=== PATIENT | female | born 1960 | race Caucasian/White ===

== ENCOUNTER 2018-07-19 06:18 | Inpatient (IN) | payer OTHER, SELFPAY ==
[2018-07-10 12:05] VITALS: BMI 16.9
[2018-07-19] VITALS (24 sets, daily range): BP systolic 97–178; BP diastolic 73–106; PULSE 54–80; RESP 8–19; TEMP 36.3–37.9; O2SAT 91–100; BMI 16.6
[2018-07-19] MEDS: LACTATED RINGERS 1,000 ML 42 ML IV ×3 (07:24→10:59)
--- NOTE | 2018-07-19 07:24 | SUR.PREOP ---
pt observed to have non-productive cough. Per pt this is chronic for her. Lungs are clear on auscultation.
--- NOTE | 2018-07-19 07:39 | PM.PREOP ---
Pre-operative Note Interval Note History & Physical reviewed/Exam performed by Physician: Yes Changes to H&P: No
[2018-07-19] MEDS: ALBUTEROL/IPRATROPIUM 3 ML AMPUL INH (07:56)
[2018-07-19] MEDS: CEFAZOLIN 1 GM/50 ML FROZ.PIGGY IV ×2 (08:00→19:52)
--- NOTE | 2018-07-19 09:05 | SUR.OPER ---
Prone on spine table, head in foam head support, padded chest and pelvic supports, gel pad at knees, lower legs supported by pillows; nipples, genitalia and toes free of pressure, arms secured on foam padded arm boards at <90 degrees abduction. Tape over blanket at thigh secured to table. patient became mobile after prone positioning prior to incision head rechecked and repositiined..arms and legs rechecked coccyx reddened after approximately 1 hr of laying on [place]
[2018-07-19] MEDS: BUPIVACAINE LIPOSOME 266 MG/20 ML VIAL INJ (09:29)
[2018-07-19] MEDS: BUPIVACAINE 0.25% W/ EPI 30 ML VIAL INJ (09:29)
[2018-07-19] MEDS: ACETAMINOPHEN IV 1,000 MG/100 ML VIAL 400 MG IV (12:00)
[2018-07-19] MEDS: CEFAZOLIN VIAL 3 GM in SODIUM CHLORIDE 0.9% 100 ML 200 ML IV (12:11)
--- NOTE | 2018-07-19 12:22 | SUR.OPER ---
WOUND DRESSING APPLIED TO SACRUM TO PREVENT PRESSURE DRESSING
--- NOTE | 2018-07-19 12:39 | PM.OP.1 ---
Operative Date/Time/Diagnoses Date of procedure: 07/19/18 Time of procedure: 08:15 Pre-op diagnosis: 1. L3-4 spondylolisthesis 2. L3-4 post laminectomy syndrome 3. Hx of L4-5 fusion with pseudoarthrosis 4. L3-4, L4-5, L5-S1 spondylosis with radiculopathy Post-op diagnosis: same Procedure & Clinicians Procedure: 1. L3-4, L5-S1 posterolateral and posterior interbody fusion 2. L3-4, L5-S1 interbody cage placement 3. L4-5 posterior non-segmental instrumentation removal 4. L4-5 decompressive laminectomy and exploration of fusion 5. L3-4, L4-5, L5-S1 segmental instrumentation with pedicle screw placement in L3, L4, L5, S1 6. L4-5 posterolateral fusion 7. [place] of bone marrow from iliac crest 8. Utilization of microsurgical technique and operating microscope Same procedure as scheduled: Yes Indications: Patient has been having chronic back pain and worsening lumbar radiculopathy. Patient had prior lumbar fusion at L4-5 with progressively worsening pain difficulty walking and weakness in her legs. Patient failed multiple conservative management with worsening pain weakness and numbness in her lower extremity. Patient has been having difficulty performing activity of daily living. After discussing risks benefits of treatment options, patient elected proceed with surgery. Surgeon: Noemi Douglas Manager Search Engine: Bonny Roth Click Yes if Unassisted: No Anesthesia Type: General Operative Notes Closure Type: primary Prosthetic devices, grafts, tissues, transplants, or devices: Globus revolve screws, Rise cages Applied: catheter Estimated Blood Loss (mL): 100 Blood products transfused: none Procedure in detail: Patient was seen in the preoperative area. Risks and benefits of the surgery was discussed with the patient. Informed consent was obtained from the patient and placed in the chart. Surgical site was marked. Patient was taken to the operative room. General anesthesia was administered. Prophylactic antibiotic was given to the patient less than 30 min before the incision was made. Patient was placed into a prone position on the [place] table. Patient's back was then prepped and draped in the sterile fashion. Time-out was performed at this time. Using patient's previous scar incision was made over the L3-4, L4-5, L5-S1 interval on the left side. Fascia was incised in line with skin incision. Patient's previously placed hardware over the L4-5 level was identified by dissecting down to the level the hardware using a Bovie and a Rojas. The locking caps which was removed using globus screwdriver. The locking josh was then removed from the [place] of the pedicle screws using a Naina. The pedicle screws were then removed using the screwdriver. The screws were found to have mild purchase at L4 and okay purchase at L5. The Globus and MARS retractors was then placed into the wound and docked onto the L3 and L5 lamina using C-arm guidance. Using microsurgical technique and operating microscope a laminectomy facetectomy was performed by removing the L3, L5 lamina and the L3-4, L5-S1 facet. The disc space at L3-4, L5-S1 level was identified next. And a total diskectomy was performed at [L3-4, L5-S1 level. The endplates were decorticated using a rasp and shaver. The total diskectomy and decortication was performed at L3-4, L5-S1 level in order to to accomplish a L3-4, L5-S1 interbody fusion. The local bone from the laminectomy and facetectomy was saved for local bone grafting. After the total diskectomy and decortication was completed, Bio4 bone graft material was combined with local bone that was harvested earlier. At this time, a separate skin is incision was made over the iliac crest. A Jamshidi needle was inserted into the iliac crest through a separate skin incision. 5 cc of bone marrow aspiration was obtained through the separate skin incision using a Jamshidi needle from the iliac crest. The bone marrow aspiration was combined with local bone and the Bio4 bone grafting material. The bone grafting material was placed into the L3-4, L5-S1 interbody space along with a expandable cage. The cage was expanded to its maximum height using the torque limiting screwdriver. At this time a mirror image incision was made on the right side. The fascia was incised in line with the skin incision. Patient's previously placed hardware on the left side was then removed in the same fashion as it was on the right side. The hardware was also found to have less than ideal purchase. The fusion mass on the right side was exposed by performing a lright-sided hemilaminectomy at [L4-5 level. The hemilaminectomy was performed using the Kerrison rongeur to undercut the lamina as well removing additional epidural scar tissue for purpose of decompressing the epidural space. The fusion mass was explored and was found have visible motion indicating pseudoarthrosis. Globus MARS retractor was inserted and docked onto the L3-4, L4-5, L5-S1 posterolateral gutter. Using the power drill, posterior-lateral decortication was performed at L3-4, L4-5, L5-S1 level until bleeding cortical bone was identified. The remaining bone grafting material was placed into the L3-4, L4-5, L5-S1 posterior lateral gutter he order to accomplish posterolateral fusion at the L3-4, L4-5, L5-S1 level. Using the double C-arm technique, pedicle screws were placed into the L3, L4, L5, S1 pedicles bilaterally. This was done by placing the Jamshidi needle into the pedicles, then placing the guidewires over the Jamshidi needle, and finally placing the cannulated screws over the guidewires bilaterally. After the pedicle screws were placed, 2 titanium rods was locked into the heads of the pedicle screws using locking caps and torque limiting screwdriver. A threaded reducers were used to reduce the spondylolisthesis at L3-4. At adequate reduction was accomplished using the hardware combination. After all the hardware was placed, and confirmed with AP and lateral C-arm imaging, the wound was then irrigated with sterile normal saline and packed with Ray-Tien gauze for 3 min to accomplish hemostasis. After the gauze was removed the deep fascia was closed with #1 Vicryl suture. The subcutaneous layer was closed with 2-0 Vicryl. The skin was closed with skin monica. Patient tolerated the procedure well. There were no complications. Complications: none Condition: stable Disposition: PACU Plan for aftercare: Admit to inpatient hospital
--- NOTE | 2018-07-19 12:44 | DI.RAD.S_ITS ---
PROCEDURE: XR LUMBAR SPINE 2-3V INDICATIONS: L3-4, L5-S1 TLIF FINDINGS: 2 limited intraoperative fluoroscopically stored images of the lower lumbar spine were obtained for intraoperative hardware localization purposes. These images are not meant for diagnostic purposes. Intraoperative findings related to a L3-S1 posterior discectomy and fusion are present. IMPRESSION: Intraoperative images obtained during the patient's lumbosacral fusion procedure. Dictated by: Jim Crowley M.D. on 07/19/2018 at 12:15 Approved by: Jim Crowley M.D. on 07/19/2018 at 12:17
[2018-07-19] MEDS: HYDROMORPHONE 2 MG INJ 0.5 MG IV ×4 (12:50→13:45)
[2018-07-19] MEDS: LORazepam 2 MG/ML SYRINGE 0.5 MG IV (12:54)
[2018-07-19] MEDS: fentaNYL 100 MCG/2 ML INJ 50 MCG IV ×2 (13:22→13:40)
--- NOTE | 2018-07-19 13:45 | SUR.PHASEI ---
continue to medicate pt for c/o pain, back dressing remains dry and intact, judd patent and draining cloudy yellow urine, report called to GAEL Vora IV patent.
[2018-07-19] MEDS: OXYCODONE IR 5 MG TABLET 10 MG PO ×3 (16:01→22:21)
--- NOTE | 2018-07-19 16:20 | PT.IPTN ---
Current Diagnoses Spondylolisthesis, lumbar region (07/19/18) Other spondylosis with radiculopathy, lumbar region (07/19/18) Spinal stenosis, lumbar region without neurogenic claudication (07/19/18) Arthrodesis status (07/19/18) Surgery Performed Operation Date: 07/19/18 07:45 Actual Procedures p L3-4,L5-S1 TLIF, L4-5 HWR & Explor. of fusion, Poss PSF L3-4,L4-5,L5-S1 Instru.(Not Applicable) - Noemi Douglas MD Physical Therapy Treatment Note M3 PT-IP Subjective Start: 07/19/18 16:53 Freq: NEEDED Status: Active Protocol: Document 07/19/18 16:20 RCC (Rec: 07/19/18 16:54 RCC [id number]) Subjective Physical Therapy Visit Type Type Patient Refusal Notes pt grimacing in pain, refused PT this afternoon. Post-op packet given for information at this time. Will attempt PT tomorrow.
[2018-07-19] MEDS: SODIUM CHLORIDE 0.9% 1,000 ML 100 ML IV (16:29)
[2018-07-19] MEDS: NICOTINE 14 PATCH 14 MG TOP (16:30)
[2018-07-19] MEDS: hydrOXYzine pamoate 25 MG CAPSULE PO (16:36)
[2018-07-19] MEDS: ONDANSETRON 4 MG/2 ML INJ IV (16:44)
--- NOTE | 2018-07-19 17:40 | PC.NURSE ---
1500 Patient received from PACU, patient and family oriented to room and call light. VSS. Dressing to back CDI. Uribe in place, secure and patent. Patient wiggling toes, good pulses. Assisted to turn to side, moaning with some pain noted with movement. Oncoming evening shift RN given report to assume care.
[2018-07-19] MEDS: HYDROMORPHONE 1 MG INJ 0.5 MG IV ×2 (18:53→20:52)
[2018-07-19] MEDS: ACETAMINOPHEN 325 MG TABLET 650 MG PO (19:52)
[2018-07-19] MEDS: hydrOXYzine pamoate 25 MG CAPSULE 50 MG PO (20:47)
[2018-07-19] MEDS: SENNOSIDES 8.6 MG TABLET 17.2 MG PO (22:22)
[2018-07-19] MEDS: DOCUSATE 100 MG CAPSULE PO (22:23)
[2018-07-19] MEDS: CITALOPRAM 20 MG TABLET PO (22:23)
[2018-07-19] MEDS: TRAZODONE 50 MG TABLET 100 MG PO (22:24)
[2018-07-20] VITALS (7 sets, daily range): BP systolic 116–154; BP diastolic 57–97; PULSE 75–89; RESP 16–21; TEMP 37.3–38.9; O2SAT 96–99
[2018-07-20] MEDS: OXYCODONE IR 5 MG TABLET 10 MG PO ×6 (01:31→18:23)
[2018-07-20] MEDS: SODIUM CHLORIDE 0.9% 1,000 ML 100 ML IV (02:58)
[2018-07-20] MEDS: CEFAZOLIN 1 GM/50 ML FROZ.PIGGY IV (03:57)
[2018-07-20 06:56] LABS: Hematocrit 30.1 % (36-46); Hemoglobin 10.4 g/dL (12.0-16.0)
[2018-07-20] MEDS: ATENOLOL 50 MG TABLET PO (07:42)
[2018-07-20] MEDS: hydrOXYzine pamoate 25 MG CAPSULE 50 MG PO ×2 (07:42→11:36)
[2018-07-20] MEDS: TIOTROPIUM BROMIDE 18 MCG INHALER INH (07:43)
[2018-07-20] MEDS: MULTIVITAMIN 1 TABLET 1 TAB PO (07:43)
[2018-07-20] MEDS: DOCUSATE 100 MG CAPSULE PO ×2 (07:43→21:19)
[2018-07-20 08:56] LABS: Bacteria Urine None Seen; RBC Urine None Seen (0-5/HPF); WBC Urine None Seen (0-5/HPF)
[2018-07-20 09:01] LABS: Appearance Urine UA CLEAR; Bilirubin Urine UA NEGATIVE (NEGATIVE); Color Urine UA YELLOW; Glucose Urine UA NEGATIVE (Negative); Ketones Urine UA NEGATIVE (NEGATIVE); Leukocyte Esterase Urine UA NEGATIVE (NEGATIVE); Nitrite Urine UA NEGATIVE (Negative); Occult Blood Urine UA NEGATIVE (Negative); Protein Urine UA NEGATIVE (Negative); Specific Gravity Urine UA <=1.005 (1.000-1.035); Urobilinogen Urine UA 0.2 E.U./dL (0.2)
[2018-07-20 09:10] LABS: Culture Indicated Urine Cult Not Indicated; Urine Comments Microscopic Normal
--- NOTE | 2018-07-20 09:31 | P.PN_ITS ---
Subjective Date Patient Seen: 07/20/18 Time Patient Seen: 09:27 Interval history: Hospital day 2, postop day 1 following L3-4 through L5-S1 TLIF, cage, posterior screw fixation by Dr. Douglas. Patient has had noticeable pain postoperatively to her back. Did have low-grade fever during the night. Temp was 102.1? oral this morning. She does have Uribe catheter in place. She denies any fever chills. No respiratory symptoms. Has been taking oxycodone 10 mg and has had 2 doses of IV Dilaudid for breakthrough pain. Patient has not had any physical therapy yet because of back pain. She states that she was told that she is not to get out of bed. I told her that was not the case and that we need to get her up and moving to help with her back and prevent pneumonia. Also need to get her Uribe catheter out as soon as possible to reduce chance of infection. Exam Vital Signs (past 8 hours): - 07/20/18 04:00 07/20/18 08:00 07/20/18 09:13 Temperature 101.8 F H 102.1 F H Pulse Rate 87 89 Respiratory Rate 21 16 Blood Pressure 154/97 H 140/85 Pulse Oximetry 96 96 96 Fraction of Inspired Oxygen 21 Oxygen Delivery Method Room Air Oxygen Flow Rate 0 Narrative Exam Narrative: Alert, oriented no acute distress right lying in bed. Back. Dressing to the lumbar area is dry without drainage or inflammation. Legs. No calf pain or swelling. Pulses symmetrical. Good sensation to touch to the lower legs. Good strength on foot dorsiflexion plantar flexion. Objective Labs Result Diagrams: 07/20/18 08:30 Labs: Laboratory Results - last 24 hr 07/20/18 07/20/18 06:36 08:30 Hgb 10.4 L Hct 30.1 L Urine Color Yellow Urine Appearance Clear Urine pH 6.0 Ur Specific Aiken <=1.005 Urine Protein Negative Urine Glucose (UA) Negative Urine Ketones Negative Urine Occult Blood Negative Urine Nitrate Negative Urine Bilirubin Negative Urine Urobilinogen 0.2 Ur Leukocyte Esterase Negative Urine RBC None seen Urine WBC None seen Urine Bacteria None seen Ur Culture Indicated? Cult not indicated Micro UA Comment Microscopic normal Assessment & Plan Post-op Postoperative Procedures Operation Date: 07/19/18 07:45 Actual Procedures Side Surgeon p L3-4,L5-S1 TLIF, L4-5 HWR & Explor. of fusion, Poss PSF L3-4,L4-5,L5-S1 Instru. Not Applicable Noemi Douglas MD Plan: Patient will begin working with physical therapy today. Encouraged her to get up out of bed in in the chair or walking in room. Anticipate DC Uribe catheter when she is more active. Will check CBC and urinalysis today discrete pain because of fever. I think the temperature is reaction to her surgery. Patient anticipates 3 night stay in the hospital.
[2018-07-20 10:06] LABS: Add Manual Diff / Slide Review NO; Basophils Absolute Auto 0 /uL (0-100); Basophils Percent Auto 0.2 % (0-2); Eosinophils Absolute Auto 0 /uL (0-450); Eosinophils Percent Auto 0.3 % (2-4); Hematocrit 41.8 % (36-46); Hemoglobin 14.1 g/dL (12.0-16.0); Lymphocytes Absolute Auto 1900 /uL (1100-4500); Mean Corpuscular HGB Conc 33.7 % (30-36); Mean Corpuscular Hemoglobin 31.9 PG (26-34); Mean Corpuscular Volume 94.7 fL (80-100); Monocytes Absolute Auto 1400 /uL (0-900); Monocytes Percent Auto 11.4 % (3-14); Neutrophils Absolute Auto 8700 /uL (1500-7000); Neutrophils Percent Auto 72.1 % (50-75); Platelet Count 231 X10^3/uL (150-400); Red Blood Cell Count 4.41 X10^6/uL (4.0-5.2); Red Cell Distribution Width 12.6 % (11.6-14.8)
--- NOTE | 2018-07-20 10:45 | PC.NURSE ---
Notified of elevated temp by MANAGER ESTATE this morning, noted at 102.1 orally. Graciela CHAVEZ notified. Order for UA with culture as indicated received, specimen collected and sent to lab. Blood work ordered and completed. No other orders received, continue to monitor patient.
--- NOTE | 2018-07-20 12:15 | PT.IIE ---
Current Diagnoses Spondylolisthesis, lumbar region (07/19/18) Other spondylosis with radiculopathy, lumbar region (07/19/18) Spinal stenosis, lumbar region without neurogenic claudication (07/19/18) Arthrodesis status (07/19/18) Surgery Performed Operation Date: 07/19/18 07:45 Actual Procedures p L3-4,L5-S1 TLIF, L4-5 HWR & Explor. of fusion, Poss PSF L3-4,L4-5,L5-S1 Instru.(Not Applicable) - Noemi Douglas MD Surgical History (Last Updated 02/16/18 @ 12:20 by Lulú Allan, RN) History of lumbar spinal fusion (Acute) Medical History (Last Updated 07/10/18 @ 12:27 by Lulú Allan, RN) Alcoholism (Acute) Anemia (Acute) Anxiety (Acute) Asthma (Acute) COPD (chronic obstructive pulmonary disease) (Acute) CSF leak (Acute) Chest pain due to psychological stress (Acute) Chronic pancreatitis due to acute alcohol intoxication (Acute) Current every day smoker (Acute) Diabetes (Acute) ETOH abuse (Acute) Easy bruisability (Acute) HTN (hypertension) (Acute) Migraines (Acute) Pancreatitis (Acute) Pneumonia (Acute) Sciatica (Acute) Seizures (Acute) Smokers' cough (Acute) Thrombocytopenia (Acute) Thrush (Acute 06/08/18) Ulcer (Acute) Physical Therapy Inpatient Evaluation/Re-Eval M1 PT/OT-IP Prior Functional Status Start: 07/19/18 16:53 Freq: NEEDED Status: Active Protocol: Document 07/20/18 09:45 (Rec: 07/20/18 12:15 [id number]) Medical Review Prior Functional Status Medical History Reviewed Yes Diet/Fluid Consistency Regular Communication No deficits noted. Able to make needs known Mobility and Gait Pt was an independent ambulator at home mostly but doesnt go out often. She often used a FWW as needed per report. He reports pt is quite impulsive and wobbly in gait prior to surgery. Activities of Daily Living and IADL's Pt was independent for ADLs and son often SBA for showering. Pt mostly home bound and son does IADLs for pt. Social History Household Members spouse Living Arrangements House Number of Floors (Floors) Two Floors Number of Stairs To Enter/Railing? 1 threshold Home Environment High Toilet Tub/Shower Home Equipment Front Wheel Walker Grab Bars Near Toilet Employment Status Retired Additional Social History Comment Pt lives with her spouse in a 2 level home in [place]. They both stays on main floor. Her spouse reports pt was mostly homebound and used a FWW sometimes if needed. He stated he always SBA for pt to get over the bathtub for safety and pt does have a little stool for step up. He is self employed and his work hours varies. He claimed to be able to assist as needed at home if pt d/c home. He also stated pt is quite impulsive and wobbly in gait prior to surgery. M2 PT-IP Current Condition Start: 07/19/18 16:53 Freq: NEEDED Status: Active Protocol: Document 07/20/18 09:45 HH (Rec: 07/20/18 12:15 [email or web address]) Physical Therapy Current Condition Current Condition Evaluation Date 07/20/18 Treatment Diagnosis L3-L4, L5-S1 TLIF, impaired gait, balance and activity tolerance. Onset Date 07/19/18 Precautions Lumbar Precautions Log Roll No Twisting Limit Bending Lifting Restriction of 10 lbs Gait Belt above Incisional Area Weight Bearing Status Weight Bearing Status Weight Bear as Tolerated M3 PT-IP Subjective Start: 07/19/18 16:53 Freq: NEEDED Status: Active Protocol: Document 07/20/18 09:45 HH (Rec: 07/20/18 12:15 [email or web address]) Subjective Physical Therapy Visit Type Type Initial Evaluation Visit Start Time 09:45 Visit Stop Time 10:30 Total Visit Minutes 45 Notes Per RN, pt had a fever 102 degree last night. Number of NUCLEAR AUXILIARY OPERATOR Visits 0 Physical Therapy Visit Comments Patient Comments I feel better today. Patient Goals To return home with her . Therapy Pain Assessment Pain When Pain Assessed During Mobility Pain Present Pain Present Pain Reported Location Back Intensity 6 Scale Used Numeric (1 - 10) Description Acute Pain Behaviors Calling Out Facial Grimacing Pain Management Techniques Modification of Treatment Re-positioning Timing of Activity with Medications M4 PT-IP Mobility and Gait Start: 07/19/18 16:53 Freq: NEEDED Status: Active Protocol: Document 07/20/18 09:45 HH (Rec: 07/20/18 12:15 [email or web address]) PT-Bed Mobility Assessment Rolling Type of Rolling Log Rolling Roll to Right Level of Assist Moderate Assistance 1 Person Assistance Supine to Sit Supine to Sit Moderate Assistance 1 Person Assistance Sit to Supine Sit to Supine Moderate Assistance 1 Person Assistance Scooting Scooting to Edge of Bed Minimal Assistance PT-Transfer Assessment Sit to and From Stand Sit to and from Stand Minimal Assistance Use of Upper Extremities Equipment Transfer Assistive Device Front Wheeled Walker Orthotic/Prosthetic Devices or Brace: No Transfers Transfer Destination Bed Chair Transfer Technique Stand Step Pivot Transfer Ability Level of Assist Minimal Assistance Comments Mobility Comments Pt required mod A x 1p for log roll and bed mobilty. min A x 1 p for sit to stand and transfer. Pt is very impulsive and often forgot precautions. Pt tried to get up multiple times without supervision and claimed I just want to get up and move. Recommended and pt to use call light for assistance. Pt was transferred back to bed with RN mod A x 1. Call light within reach and bed alarm set . Gait Assessment Gait Gait Assistance Required: Minimum Assistance Distance (Feet) 20 Able to Maintain Weight Bearing Status Yes During Gait Assistive Devices Assistive Device Gait Belt Front Wheeled Walker Orthotic/Prosthetic Devices or Brace: No Gait Deviations General Gait Pattern Decreased Stride Length Decreased Feet Clearance Step-to Gait Factors Limiting Gait Function Factors Limiting Gait Function Decreased Activity Tolerance Decreased Sensation Decreased Strength Limited Range of Motion Pain Poor Balance Poor Safety Awareness Comments Gait Comments Pt amb from EOB to window and back to chair with min A FWW. Pt was wobbly during amb and often misplaced her walker to the side and required cues and assistance to redirect her. Pt got up from chair once without supervision and her requested for help. RN and therapist hand held assist pt back to bed. Pt stated Im unsteady and my LLE is very weak. Stair Climbing Assessment Comments Stair Climbing Comments did not attempt due to unsteady gait PT-Balance Assessment Sitting Balance and Reactions Static Sitting Balance Ability Normal Dynamic Sitting Balance Ability Good Standing Balance and Reactions Static Standing Balance Ability Fair Dynamic Standing Balance Ability Fair Device Used FWW M5 PT-IP Objective Assessments Start: 07/19/18 16:53 Freq: NEEDED Status: Active Protocol: Document 07/20/18 09:45 HH (Rec: 07/20/18 12:15 [email or web address]) Orientation Orientation/Cognition Level of Alertness Alert Orientation Name Age Birthday Month Date Year Day of Week Place Situation Language Function Ability No Deficits Noted Safety Awareness Decreased Safety Awareness Memory Description No Deficits Noted Comments Pt is very impulsive and non patient Gross Range of Motion Upper Extremity ROM Assessment Within Functional Limits Lower Extremity ROM Assessment Within Functional Limits Strength Upper Extremity Strength Assessment Within Functional Limits Lower Extremity Strength Assessment Bilaterally Impaired Comments Strength Comments L LE 3+/5 R LE 4+/5 pt reports she has weakness prior to surgery. Coordination Assessment Gross Coordination Gross Coordination WNL Sensation Assessment Sensation Gross Sensation WNL Light Touch Intact Proprioception (Position) Intact Muscle Tone Muscle Tone WNL Yes M6 PT-IP Treatment Start: 07/19/18 16:53 Freq: NEEDED Status: Active Protocol: Document 07/20/18 09:45 HH (Rec: 07/20/18 12:15 HH [email or web address]) Physical Therapy Treatment Exercises Exercises Gluteal Sets Quad Sets Education Education Provided Precautions Weight Bearing Status Post-Op Packet Safety M7 PT-IP Assessment and Plan Start: 07/19/18 16:53 Freq: NEEDED Status: Active Protocol: Document 07/20/18 09:45 HH (Rec: 07/20/18 12:15 HH [email or web address]) PT Summary Assessment and Plan Potential Rehabilitation Potential Good Status of Condition at Evaluation Evolving Summary Impairments Pain ROM Strength Balance Cognition Bed Mobility Transfers Gait Activity Tolerance Assessment Summary Pt is a 58yo female POD #2 L3- L4, L5-S1 TLIF due to severe chronic back pain. Pt appears very impulsive and non patient who often disregard precautions to mobilize herself. Pt required mod A for bed mobility and min A for gait training. Pt needs mod cues for safety awareness and FWW management. Pt also has weak L LE and decreased balance as she was wobbly during amb. Pt is not safe to d/c home at this point due to her behavioral issues and pain which creates fall risks. Recommend d/c to short term SNF to improve mobility. Unless, pt was able to clear her rehab goals prior to d/c home. Goals Bed Mobility Goal Standby Assistance Transfer Goal Standby Assistance Front Wheeled Walker Gait Goal Standby Assistance Front Wheel Walker Gait Distance 200 Other Goals clear 1 step with AD Days to Meet Goals 5 Frequency of Treatment Frequency Of Treatment Twice a Day Treatment Plan Physical Therapy Treatment Plan Bed Mobility Training Transfer Training Gait Training Therapeutic Exercise Balance Retraining Post Op Education Discharge Planning Hot or Cold Pack Other Recommendations and Next Treatment review precautions Focus cont monitor pt safety bed mob, transfer and gait training as nakul clear 1 step if possible Recommendations To Nursing Amount of Assist Needed 1 Person Assist Discharge Recommendations PT Discharge Recommendations Home with Assistance SNF Rehab Other Discharge Recommendations Pt is not safe to d/c home at this point due to her behavioral issues and pain which creates fall risks. Recommend d/c to short term SNF to improve mobility. Unless, pt was able to clear her rehab goals prior to d/c home. Equipment Needed for Home Before tub bench Discharge
--- NOTE | 2018-07-20 14:37 | PC.NURSE ---
Patient forgetful with instructions and impulsive with movements. Patient requires a lot of verbal cueing for safety. Restrictions re-enforced. Uribe remains intact and draining. Dressing remains dry with shadow drainage noted but unchanged. Pain management with oxycodone as documented. Bed/chair alarm for safety;
--- NOTE | 2018-07-20 15:36 | PT.IPTN ---
Current Diagnoses Spondylolisthesis, lumbar region (07/19/18) Other spondylosis with radiculopathy, lumbar region (07/19/18) Spinal stenosis, lumbar region without neurogenic claudication (07/19/18) Arthrodesis status (07/19/18) Surgery Performed Operation Date: 07/19/18 07:45 Actual Procedures p L3-4,L5-S1 TLIF, L4-5 HWR & Explor. of fusion, Poss PSF L3-4,L4-5,L5-S1 Instru.(Not Applicable) - Noemi Douglas MD Physical Therapy Treatment Note M2 PT-IP Current Condition Start: 07/19/18 16:53 Freq: NEEDED Status: Active Protocol: Document 07/20/18 09:45 (Rec: 07/20/18 12:15 [email or web address]) Physical Therapy Current Condition Current Condition Evaluation Date 07/20/18 Treatment Diagnosis L3-L4, L5-S1 TLIF, impaired gait, balance and activity tolerance. Onset Date 07/19/18 Precautions Lumbar Precautions Log Roll No Twisting Limit Bending Lifting Restriction of 10 lbs Gait Belt above Incisional Area Weight Bearing Status Weight Bearing Status Weight Bear as Tolerated M3 PT-IP Subjective Start: 07/19/18 16:53 Freq: NEEDED Status: Active Protocol: Document 07/20/18 15:19 SA (Rec: 07/20/18 15:36 SA [email or web address]) Subjective Physical Therapy Visit Type Type Treatment Note Visit Start Time 14:18 Visit Stop Time 14:41 Total Visit Minutes 23 Number of SECY Visits 1 Physical Therapy Visit Comments Patient Comments Pt initially refused to participate in therapy but finally agreed after encouragement from daughter. Patient Goals To return home with her . Therapy Pain Assessment Pain When Pain Assessed During Mobility Pain Present Pain Present Pain Reported Location Back Intensity 6 Scale Used Numeric (1 - 10) Description Acute Pain Behaviors Calling Out Facial Grimacing Pain Management Techniques Modification of Treatment Re-positioning Timing of Activity with Medications M4 PT-IP Mobility and Gait Start: 07/19/18 16:53 Freq: NEEDED Status: Active Protocol: Document 07/20/18 15:19 SA (Rec: 07/20/18 15:36 SA [email or web address]) PT-Bed Mobility Assessment Rolling Type of Rolling Log Rolling Roll to Right Level of Assist Minimal Assistance 1 Person Assistance Supine to Sit Supine to Sit Minimal Assistance 1 Person Assistance Sit to Supine Sit to Supine Minimal Assistance 1 Person Assistance Scooting Scooting to Edge of Bed Standby Assistance Scooting Up and Down in Bed Standby Assistance PT-Transfer Assessment Sit to and From Stand Sit to and from Stand Contact Guard Assistance Minimal Assistance Equipment Transfer Assistive Device Gait Belt Front Wheeled Walker Orthotic/Prosthetic Devices or Brace: No Transfers Transfer Destination Bed Toilet Transfer Technique Stand Step Pivot Transfer Ability Level of Assist Contact Guard Assistance Minimal Assistance Comments Mobility Comments Focused education for log roll technique with patient and daughter. Pt is very impulsive and not compliant with spinal precautions, visual/verbal review of precautions conducted with patient and family. Gait Assessment Gait Gait Assistance Required: Contact Guard Assist Minimum Assistance 1 Person Assist Distance (Feet) 25 Able to Maintain Weight Bearing Status Yes During Gait Assistive Devices Assistive Device Gait Belt Front Wheeled Walker Orthotic/Prosthetic Devices or Brace: No Gait Deviations General Gait Pattern Decreased Stride Length Decreased Feet Clearance Step-to Gait Factors Limiting Gait Function Factors Limiting Gait Function Decreased Activity Tolerance Decreased Sensation Decreased Strength Limited Range of Motion Pain Poor Balance Poor Safety Awareness Comments Gait Comments Gait training in room bathroom and back with FWW and CGA-Min A. Pt attempts to leave FWW behind even though she is unsteady on feet. Pt demonstrates poor balance and safety awareness. Stair Climbing Assessment Comments Stair Climbing Comments did not attempt due to unsteady gait PT-Balance Assessment Sitting Balance and Reactions Static Sitting Balance Ability Normal Dynamic Sitting Balance Ability Good M5 PT-IP Objective Assessments Start: 07/19/18 16:53 Freq: NEEDED Status: Active Protocol: Document 07/20/18 09:45 (Rec: 07/20/18 12:15 [email or web address]) Orientation Orientation/Cognition Level of Alertness Alert Orientation Name Age Birthday Month Date Year Day of Week Place Situation Language Function Ability No Deficits Noted Safety Awareness Decreased Safety Awareness Memory Description No Deficits Noted Comments Pt is very impulsive and non patient Gross Range of Motion Upper Extremity ROM Assessment Within Functional Limits Lower Extremity ROM Assessment Within Functional Limits Strength Upper Extremity Strength Assessment Within Functional Limits Lower Extremity Strength Assessment Bilaterally Impaired Comments Strength Comments L LE 3+/5 R LE 4+/5 pt reports she has weakness prior to surgery. Coordination Assessment Gross Coordination Gross Coordination WNL Sensation Assessment Sensation Gross Sensation WNL Light Touch Intact Proprioception (Position) Intact Muscle Tone Muscle Tone WNL Yes M6 PT-IP Treatment Start: 07/19/18 16:53 Freq: NEEDED Status: Active Protocol: Document 07/20/18 15:19 SA (Rec: 07/20/18 15:36 SA [email or web address]) Physical Therapy Treatment Exercises Exercises Gluteal Sets Quad Sets Education Education Provided Precautions Weight Bearing Status Post-Op Packet Safety M7 PT-IP Assessment and Plan Start: 07/19/18 16:53 Freq: NEEDED Status: Active Protocol: Document 07/20/18 15:19 SA (Rec: 07/20/18 15:36 [email or web address]) PT Summary Assessment and Plan Summary Assessment Summary Pt demonstrates poor judgment and safety awareness, unsteady on feet with weak LEs , recommend SNF prior to d/c home. Family is supportive but pt tends to direct her own care. Goals Days to Meet Goals 5 Frequency of Treatment Frequency Of Treatment Twice a Day Treatment Plan Physical Therapy Treatment Plan Bed Mobility Training Transfer Training Gait Training Therapeutic Exercise Balance Retraining Post Op Education Discharge Planning Hot or Cold Pack Other Recommendations and Next Treatment review precautions Focus cont monitor pt safety bed mob, transfer and gait training as nakul clear 1 step if possible Recommendations To Nursing Amount of Assist Needed 1 Person Assist Discharge Recommendations PT Discharge Recommendations Home with Assistance SNF Rehab Other Discharge Recommendations Continued recommendation for SNF d/c.
--- NOTE | 2018-07-20 16:04 | CM.DANOTE ---
Discharge Planning/Care Management DCP: assessment: case received, EMR reviewed. Discussed in Team Rounds. Pt is a 58 year old female who admitted for a planned spinal surgery: Dr Doulgas: surgeon. Payer: [facility] INPT admission status: confirmed by UR GALE Atkins. PT and OT are ordered. No OT notes are yet available. OF NOTE: pt's spouse Abran did the pre-op assessment phone discussion. See that pt has hx of anxiety, alcohol abuse with current use 2 drinks a day. is a daily smoker. is primarily homebound with noting unsteadiness and impulsiveness with mobility as a baseline. Pt and husbands stated d/c goal: home with Abran's assist. See that PT Ho (Thomas) is recommending a snf stay at this time. P: discuss in Team Rounds and look for OT notes tomorrow. Meet with pt and Abran for further discussion of d/c issues and options. It would appear questionable that pt would do well in a snf environment but will follow up tomorrow as noted. carranza auth would be needed. CM Discharge Assessment Start: 07/20/18 16:04 Freq: Status: Active Protocol: Document 07/20/18 16:04 ITV (Rec: 07/20/18 16:04 ITV [email or web address]) Discharge Planning Assessment Advance Directives? No History Provided By Medical Record Prior Living Arrangements House Household Members spouse Review Status In Process Next Review Type Continued Stay Review Pre-Anesthesia Assessment Start: 07/10/18 12:05 Freq: Status: Complete Protocol: Document 07/10/18 12:05 CAB (Rec: 07/10/18 12:27 CAB [id number]) Pre-Anesthesia Assessment Patient Information Reviewed Via Chart Review Comment Spoke briefly on phone w/ to review medications Diagnostic Results BMP/CMP CBC EKG PT/INR Other Comment A1c. Outside labs 05/05/18, ECG x 3 scanned to record Primary Care Provider Flako Serrano Medical Clearance Received Yes Seen Specialist in Last 12 Months Yes Specialist Seen Orthopedist Comment PCP clearance 06/08/18 scanned to record Primary Language Bhutanese Sequins Slinger Required No Height 160.02 cm Weight 43.545 kg Body Mass Index (BMI) 16.9 Hearing Ability Normal Visual Impairment No Limitations Visual Assist None Dentition Type Full- Upper & Lower Other Aids No Hx Anesthesia Reactions No Hx Family Anesthesia Reaction No Hx Malignant Hyperthermia No Hx Blood Transfusions No Anesthesia Review Requested Anesthesia review completed scanned to record Medical Pathology Teacher No alcohol intake current alcohol intake frequency 0-2 drinks per day Alcohol Intake Frequency Other: ETOH abuse, states now 2 drinks daily Smoking Status Current every day smoker Smoking packs per day 1 Smoking pack-years 40 Substance Use Type marijuana Pain Present Pain Reported Musculoskeletal Symptoms Abnormal Gait Back Pain Difficulty Walking Joint Pain Numbness History of Falling (Recent or History of Yes ) Patient is completely paralyzed or No completely immobile Mental Status Oriented to own ability Is patient on oxygen? No Does patient have GALLARDO/SOB Yes: r/t anxiety, asthma Hx Sleep Apnea No Comment PFT 06/02/18 scanned to record Currently Taking a Beta Elvis Yes: Atenolol Can You Climb a Flight of Stairs Without No SOB Hx Chest Pain Yes: Chest tightness Hx SOB Yes: r/t anxiety, asthma Hx Syncope or Dizziness No Anti-Coagulant Therapy No Has a Physician Specialist Yes: Dr. Hassan-last visit Cardiac Testing Yes: ECHO 04/11/18, Nuc stress 04/12/19 Hx Pacemaker/ICD No Pacemaker Rep Required? No Cardiac Clearance Received Not Applicable Diet Type At Home Regular dysphagia No Bladder Pattern Frequency Incontinent, Stress Nocturia Urgency Urinary Catheter Present No Hx Urinary Self Catheterization No Diabetes Yes: History of DM, went away per PCP HgbA1C 5.7 Date 05/05/18 Patient No Lactating No Hx Drug Resistant Organism No Presence of External or Internal Medical No Devices Have you traveled outside the [facility] in the last 30 days? Marital Status Lives With spouse Prior Living Arrangements House Number of Floors (Floors) Two Floors Number of Stairs To Enter/Railing? None Support System Spouse Does the Patient Have Assistance After Yes Surgery Patient Discharge Plan Description Return Home Do You Have Any Spiritual Beliefs That No May Affect Your HC Choices? Do You Have Any Cultural Practices That No May Affect Your HC Choices? Health Care Proxy/Next of Kin Abran () Health Care Proxy Emergency Contact Name Abran () Emergency Contact Advance Directives? No: Pt declines further information Power of Social Sciences Professor No PAC Instructions Durable medical equipment Medications to take/avoid Post-op transportation Sturdy shoes/comfortable clothes Discharge Planning/Care Management CM Discharge Assessment Start: 07/20/18 16:04 Freq: Status: Active Protocol: Document 07/20/18 16:04 ITV (Rec: 07/20/18 16:04 ITV [email or web address]) Discharge Planning Assessment Advance Directives? No History Provided By Medical Record Prior Living Arrangements House Household Members spouse Review Status In Process Next Review Type Continued Stay Review Pre-Anesthesia Assessment Start: 07/10/18 12:05 Freq: Status: Complete Protocol: Document 07/10/18 12:05 CAB (Rec: 07/10/18 12:27 CAB [id number]) Pre-Anesthesia Assessment Patient Information Reviewed Via Chart Review Comment Spoke briefly on phone w/ to review medications Diagnostic Results BMP/CMP CBC EKG PT/INR Other Comment A1c. Outside labs 05/05/18, ECG x 3 scanned to record Primary Care Provider Flako Serrano Medical Clearance Received Yes Seen Specialist in Last 12 Months Yes Specialist Seen Orthopedist Comment PCP clearance 06/08/18 scanned to record Primary Language Bhutanese Sequins Slinger Required No Height 160.02 cm Weight 43.545 kg Body Mass Index (BMI) 16.9 Hearing Ability Normal Visual Impairment No Limitations Visual Assist None Dentition Type Full- Upper & Lower Other Aids No Hx Anesthesia Reactions No Hx Family Anesthesia Reaction No Hx Malignant Hyperthermia No Hx Blood Transfusions No Anesthesia Review Requested Anesthesia review completed scanned to record Medical Pathology Teacher No alcohol intake current alcohol intake frequency 0-2 drinks per day Alcohol Intake Frequency Other: ETOH abuse, states now 2 drinks daily Smoking Status Current every day smoker Smoking packs per day 1 Smoking pack-years 40 Substance Use Type marijuana Pain Present Pain Reported Musculoskeletal Symptoms Abnormal Gait Back Pain Difficulty Walking Joint Pain Numbness History of Falling (Recent or History of Yes ) Patient is completely paralyzed or No completely immobile Mental Status Oriented to own ability Is patient on oxygen? No Does patient have GALLARDO/SOB Yes: r/t anxiety, asthma Hx Sleep Apnea No Comment PFT 06/02/18 scanned to record Currently Taking a Beta Elvis Yes: Atenolol Can You Climb a Flight of Stairs Without No SOB Hx Chest Pain Yes: Chest tightness Hx SOB Yes: r/t anxiety, asthma Hx Syncope or Dizziness No Anti-Coagulant Therapy No Has a Physician Specialist Yes: Dr. Hassan-last visit Cardiac Testing Yes: ECHO 12/18/18, Nuc stress 04/12/19 Hx Pacemaker/ICD No Pacemaker Rep Required? No Cardiac Clearance Received Not Applicable Diet Type At Home Regular dysphagia No Bladder Pattern Frequency Incontinent, Stress Nocturia Urgency Urinary Catheter Present No Hx Urinary Self Catheterization No Diabetes Yes: History of DM, went away per PCP HgbA1C 5.7 Date 05/05/18 Patient No Lactating No Hx Drug Resistant Organism No Presence of External or Internal Medical No Devices Have you traveled outside the [facility] in the last 30 days? Marital Status Lives With spouse Prior Living Arrangements House Number of Floors (Floors) Two Floors Number of Stairs To Enter/Railing? None Support System Spouse Does the Patient Have Assistance After Yes Surgery Patient Discharge Plan Description Return Home Do You Have Any Spiritual Beliefs That No May Affect Your HC Choices? Do You Have Any Cultural Practices That No May Affect Your HC Choices? Health Care Proxy/Next of Kin Abran () Health Care Proxy Emergency Contact Name Abran () Emergency Contact Advance Directives? No: Pt declines further information Power of Social Sciences Professor No PAC Instructions Durable medical equipment Medications to take/avoid Post-op transportation Sturdy shoes/comfortable clothes
[2018-07-20] MEDS: ACETAMINOPHEN 325 MG TABLET 650 MG PO (17:12)
--- NOTE | 2018-07-20 18:01 | OT.IP.TRT ---
Current Diagnoses Spondylolisthesis, lumbar region (07/19/18) Other spondylosis with radiculopathy, lumbar region (07/19/18) Spinal stenosis, lumbar region without neurogenic claudication (07/19/18) Arthrodesis status (07/19/18) Surgery Performed Operation Date: 07/19/18 07:45 Actual Procedures p L3-4,L5-S1 TLIF, L4-5 HWR & Explor. of fusion, Poss PSF L3-4,L4-5,L5-S1 Instru.(Not Applicable) - Noemi Douglas MD Occupational Therapy Treatment Note M3 OT- IP Subjective and Pain Start: 07/20/18 17:57 Freq: Status: Active Protocol: Document 07/20/18 17:59 CGR (Rec: 07/20/18 18:00 CGR [email or web address]) OT- Subjective Occupational Therapy Visit Type Type Patient Unavailable Notes Attempted to see pt for OT services this PM. Pt declined all activity and this time stating that she just could not perform anything else today. Will follow up tomorrow (07/21) for OT eval.
[2018-07-20] MEDS: TRAZODONE 50 MG TABLET 100 MG PO (21:18)
[2018-07-20] MEDS: SENNOSIDES 8.6 MG TABLET 17.2 MG PO (21:19)
[2018-07-20] MEDS: NICOTINE 14 PATCH 14 MG TOP (21:19)
[2018-07-20] MEDS: CITALOPRAM 20 MG TABLET PO (21:19)
[2018-07-21] VITALS (8 sets, daily range): BP systolic 104–126; BP diastolic 69–86; PULSE 64–84; RESP 16–19; TEMP 36.3–38.4; O2SAT 94–99
[2018-07-21] MEDS: ACETAMINOPHEN 325 MG TABLET 650 MG PO ×3 (00:06→19:50)
[2018-07-21] MEDS: OXYCODONE IR 5 MG TABLET 10 MG PO ×2 (00:06→07:44)
--- NOTE | 2018-07-21 03:32 | PC.NURSE ---
Pt. restless & confused getting OOB frequently. Pulled out her IV access, refused to restart another IV access. Will cont. POC & monitor
--- NOTE | 2018-07-21 05:46 | PC.NURSE ---
Pt. finally sleeping since 399. Rony still inplaced, coordinator notified states just let her sleep for now. Will monitor & report to day RN.
--- NOTE | 2018-07-21 08:04 | CM.DPC ---
DCP: continued. Met now with pt and her Abran, rooming in. Introduced self and role. Discussed their plan for post hospital care and mentioned the PT recommendation for snf. Both confirmed the plan for home. Abran notes, we don't like nursing homes. I will be taking care of her at home. We've done this before after spinal surgery. Pt is up in chair, and agrees with this. She at this time is smiling and appears relaxed. She admits to a restless night. Spoke with ortho SCOTT Rai. She notes pt has chronic pain history and is currently on less pain medication than she gets at home. Spoke with GAEL Farmer. He reports pt has been doing well thus far this morning and he is removing judd catheter as per orders. He is updated on the status of the DCP at this time. P: expect home with Abran's assist when stable for same.
--- NOTE | 2018-07-21 08:57 | PM.PNPO.1 ---
Subjective Date Patient Seen: 07/21/18 Interval history: Patient is seen bedside status post L3-4,L5-S1 TLIF, L4-5 HWR & Explor. of fusion, Poss PSF L3-4,L4-5,L5-S1. Her pain has been poorly controlled which has made it difficult for her to move. Patient has been on chronic opioids for pain management prior to surgery. She would like to go home however and does have her for support. She denies chest pain, shortness of breath, nausea vomiting, and calf pain. She did have an episode last night where she ripped out her IV and reacts poorly to Vistaril. This was discontinued. Exam Vital Signs (past 8 hours): - 07/21/18 01:04 07/21/18 03:36 07/21/18 07:35 Temperature 100.9 F H 100.4 F H 97.7 F Pulse Rate 82 84 Respiratory Rate 19 16 Blood Pressure 107/70 126/86 Pulse Oximetry 94 99 Fraction of Inspired Oxygen 21 Oxygen Delivery Method Room Air Oxygen Flow Rate 0 Narrative Exam Narrative: Cachectic, no acute distress. Alert and oriented to person, place, and time. Dressing on lumbar spine is clean, dry, and intact with no signs of drainage. Minimal erythema and generalized swelling around the surgical site. Neurovascularly intact in bilateral lower extremities with soft and compressible calves. Range of motion intact bilateral lower extremities. Objective Labs Result Diagrams: 07/20/18 08:30 Labs: Laboratory Results - last 24 hr 07/20/18 07/20/18 08:30 08:30 WBC 12.0 H RBC 4.41 Hgb 14.1 Hct 41.8 MCV 94.7 MCH 31.9 MCHC 33.7 RDW 12.6 Plt Count 231 Neut % (Auto) 72.1 Lymph % (Auto) 16.0 L [place] % (Auto) 11.4 Eos % (Auto) 0.3 L Baso % (Auto) 0.2 Neut # (Auto) 8700 H Lymph # (Auto) 1900 [place] # (Auto) 1400 H Eos # (Auto) 0 Baso # (Auto) 0 Urine Color Yellow Urine Appearance Clear Urine pH 6.0 Ur Specific [place] <=1.005 Urine Protein Negative Urine Glucose (UA) Negative Urine Ketones Negative Urine Occult Blood Negative Urine Nitrate Negative Urine Bilirubin Negative Urine Urobilinogen 0.2 Ur Leukocyte Esterase Negative Urine RBC None seen Urine WBC None seen Urine Bacteria None seen Ur Culture Indicated? Cult not indicated Micro UA Comment Microscopic normal Assessment & Plan Post-op Postoperative Procedures Operation Date: 07/19/18 07:45 Actual Procedures Side Surgeon p L3-4,L5-S1 TLIF, L4-5 HWR & Explor. of fusion, Poss PSF L3-4,L4-5,L5-S1 Instru. Not Applicable Noemi Douglas MD 1. Postop day 2. Status post above procedure-increased her oxycodone to account for her tolerance. Added Robaxin as needed for muscle spasms and steroid burst to help with pain. Discontinued all IV medications. Continue PT and OT. Dispo-possibly tomorrow based on pain control and movement with therapy Quality VTE Deep Vein Thrombosis/Pulmonary Embolism Present on Admission: No
[2018-07-21] MEDS: MULTIVITAMIN 1 TABLET 1 TAB PO (09:03)
[2018-07-21] MEDS: ATENOLOL 50 MG TABLET PO (09:03)
--- NOTE | 2018-07-21 09:06 | PT.IPTN ---
Current Diagnoses Spondylolisthesis, lumbar region (07/19/18) Other spondylosis with radiculopathy, lumbar region (07/19/18) Spinal stenosis, lumbar region without neurogenic claudication (07/19/18) Arthrodesis status (07/19/18) Surgery Performed Operation Date: 07/19/18 07:45 Actual Procedures p L3-4,L5-S1 TLIF, L4-5 HWR & Explor. of fusion, Poss PSF L3-4,L4-5,L5-S1 Instru.(Not Applicable) - Noemi Douglas MD Physical Therapy Treatment Note M2 PT-IP Current Condition Start: 07/19/18 16:53 Freq: NEEDED Status: Active Protocol: Document 07/20/18 09:45 HH (Rec: 07/20/18 12:15 [email or web address]) Physical Therapy Current Condition Current Condition Evaluation Date 07/20/18 Treatment Diagnosis L3-L4, L5-S1 TLIF, impaired gait, balance and activity tolerance. Onset Date 07/19/18 Precautions Lumbar Precautions Log Roll No Twisting Limit Bending Lifting Restriction of 10 lbs Gait Belt above Incisional Area Weight Bearing Status Weight Bearing Status Weight Bear as Tolerated M3 PT-IP Subjective Start: 07/19/18 16:53 Freq: NEEDED Status: Active Protocol: Document 07/21/18 08:51 LJ (Rec: 07/21/18 09:06 [id number]) Subjective Physical Therapy Visit Type Type Treatment Note Visit Start Time 08:51 Visit Stop Time 09:02 Total Visit Minutes 9 Notes Pt just returned to bed after using toilet. Per pt, her pain is getting worse. M4 PT-IP Mobility and Gait Start: 07/19/18 16:53 Freq: NEEDED Status: Active Protocol: Document 07/21/18 08:51 LJ (Rec: 07/21/18 09:06 LJ [id number]) PT-Transfer Assessment Comments Mobility Comments Pt sitting in bed. Unwilling to get up Gait Assessment Comments Gait Comments Pt in bed unwilling to get up Stair Climbing Assessment Comments Stair Climbing Comments did not attempt M5 PT-IP Objective Assessments Start: 07/19/18 16:53 Freq: NEEDED Status: Active Protocol: Document 07/20/18 09:45 HH (Rec: 07/20/18 12:15 [email or web address]) Orientation Orientation/Cognition Level of Alertness Alert Orientation Name Age Birthday Month Date Year Day of Week Place Situation Language Function Ability No Deficits Noted Safety Awareness Decreased Safety Awareness Memory Description No Deficits Noted Comments Pt is very impulsive and non patient Gross Range of Motion Upper Extremity ROM Assessment Within Functional Limits Lower Extremity ROM Assessment Within Functional Limits Strength Upper Extremity Strength Assessment Within Functional Limits Lower Extremity Strength Assessment Bilaterally Impaired Comments Strength Comments L LE 3+/5 R LE 4+/5 pt reports she has weakness prior to surgery. Coordination Assessment Gross Coordination Gross Coordination WNL Sensation Assessment Sensation Gross Sensation WNL Light Touch Intact Proprioception (Position) Intact Muscle Tone Muscle Tone WNL Yes M6 PT-IP Treatment Start: 07/19/18 16:53 Freq: NEEDED Status: Active Protocol: Document 07/21/18 08:51 FLORES (Rec: 07/21/18 09:06 [id number]) Physical Therapy Treatment Exercises Exercises Gluteal Sets Quad Sets Education Education Provided Precautions Weight Bearing Status Post-Op Packet Safety M7 PT-IP Assessment and Plan Start: 07/19/18 16:53 Freq: NEEDED Status: Active Protocol: Document 07/21/18 08:51 FLORES (Rec: 07/21/18 09:06 [id number]) PT Summary Assessment and Plan Potential Rehabilitation Potential Good Status of Condition at Evaluation Evolving Summary Assessment Summary Educated pt on core stabilization and she claims to understand. Per pt, she will get up later today. Pain too great at this time. Goals Days to Meet Goals 5 Frequency of Treatment Frequency Of Treatment Twice a Day Treatment Plan Physical Therapy Treatment Plan Bed Mobility Training Transfer Training Gait Training Therapeutic Exercise Balance Retraining Post Op Education Discharge Planning Hot or Cold Pack Other Recommendations and Next Treatment review precautions Focus cont monitor pt safety bed mob, transfer and gait training as nakul clear 1 step if possible Recommendations To Nursing Amount of Assist Needed 1 Person Assist Discharge Recommendations PT Discharge Recommendations Home with Assistance SNF Rehab Other Discharge Recommendations Continued recommendation for SNF d/c.
--- NOTE | 2018-07-21 09:25 | PC.NURSE ---
Day shift: Per SCOTT beltran for no IV access. Changed IV meds to PO.
[2018-07-21] MEDS: METHOCARBAMOL 500 MG TABLET PO (09:45)
[2018-07-21] MEDS: DEXAMETHASONE 4 MG TABLET 8 MG PO (09:45)
[2018-07-21] MEDS: NICOTINE 14 PATCH 14 MG TOP (09:46)
[2018-07-21] MEDS: OXYCODONE IR 5 MG TABLET 15 MG PO ×4 (10:37→19:50)
[2018-07-21] MEDS: TIOTROPIUM BROMIDE 18 MCG INHALER INH (10:43)
--- NOTE | 2018-07-21 16:08 | OT.IP.EVAL ---
Current Diagnoses Spondylolisthesis, lumbar region (07/19/18) Other spondylosis with radiculopathy, lumbar region (07/19/18) Spinal stenosis, lumbar region without neurogenic claudication (07/19/18) Arthrodesis status (07/19/18) Surgery Performed Operation Date: 07/19/18 07:45 Actual Procedures p L3-4,L5-S1 TLIF, L4-5 HWR & Explor. of fusion, Poss PSF L3-4,L4-5,L5-S1 Instru.(Not Applicable) - Noemi Douglas MD Past Medical History (Last Updated 07/10/18 @ 12:27 by Lulú Allan, RN) Alcoholism (Acute) Anemia (Acute) Anxiety (Acute) Asthma (Acute) COPD (chronic obstructive pulmonary disease) (Acute) CSF leak (Acute) Chest pain due to psychological stress (Acute) Chronic pancreatitis due to acute alcohol intoxication (Acute) Current every day smoker (Acute) Diabetes (Acute) ETOH abuse (Acute) Easy bruisability (Acute) HTN (hypertension) (Acute) Migraines (Acute) Pancreatitis (Acute) Pneumonia (Acute) Sciatica (Acute) Seizures (Acute) Smokers' cough (Acute) Thrombocytopenia (Acute) Thrush (Acute 06/08/18) Ulcer (Acute) Surgical History (Last Updated 02/16/18 @ 12:20 by Lulú Allan, GAEL) History of lumbar spinal fusion (Acute) Occupational Therapy Inpatient Evaluation/Re-Eval M1 PT/OT-IP Prior Functional Status Start: 07/19/18 16:53 Freq: NEEDED Status: Active Protocol: Document 07/21/18 15:47 CGR (Rec: 07/21/18 16:08 CGR [email or web address]) Medical Review Prior Functional Status Medical History Reviewed Yes Diet/Fluid Consistency Regular Communication No deficits noted. Able to make needs known Mobility and Gait Pt was an independent ambulator at home mostly but doesnt go out often. She often used a FWW as needed per report. He reports pt is quite impulsive and wobbly in gait prior to surgery. Activities of Daily Living and IADL's Pt was independent for ADLs and often SBA for showering. Pt mostly home bound and does IADLs for pt. Social History Household Members spouse Living Arrangements House Number of Floors (Floors) Two Floors Number of Stairs To Enter/Railing? 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 M2 OT-IP Current Condition Start: 07/20/18 17:57 Freq: Status: Active Protocol: Document 07/21/18 15:47 CGR (Rec: 07/21/18 16:08 CGR [email or web address]) Occupational Therapy Current Condition Current Condition Evaluation Date 07/21/18 Treatment Diagnosis L3-4 and L5-S1 TLIF Post Operative Precautions Lumbar Precautions Log Roll No Twisting Limit Bending Lifting Restriction of 10 lbs Gait Belt above Incisional Area M3 OT- IP Subjective and Pain Start: 07/20/18 17:57 Freq: Status: Active Protocol: Document 07/21/18 15:47 CGR (Rec: 07/21/18 16:08 CGR [email or web address]) OT- Subjective Occupational Therapy Visit Type Type Initial Evaluation Visit Start Time 14:00 Visit Stop Time 14:30 Total Visit Minutes 30 Occupational Therapy Visit Comments Patient Comments Pt agreeable to OT services. Co-treat with P.T. OT Pain Assessment Pain When Pain Assessed At Rest Pain Present Pain Present Pain Reported Location Back Intensity 6 Scale Used Numeric (1 - 10) Pain Behaviors Guarding M4 OT- IP ADL's Start: 07/20/18 17:57 Freq: Status: Active Protocol: Document 07/21/18 15:47 CGR (Rec: 07/21/18 16:08 CGR [email or web address]) OT TCV-Yojv-Sjipivq General Evaluation Self-Feeding Ability Independent Comments OT Self-Feeding Comments Attempted to see pt earlier in the day. Pt eating lunch seated in bed without assist. OT ADL-Grooming General Evaluation Grooming Ability Independent Areas Needing Assistance Combing/Brushing Hair Face Washing Comments OT Grooming Comments Standing at sink OT ADL-Oral Care Comments Oral Care Comments Pt declined, states performed this AM. OT ADL-Dressing General Eval Upper Body Dressing Ability Independent Lower Body Dressing Ability Independent Areas Needing Assistance Socks Comments OT Dressing Comments Seated in chair. OT ADL-Toileting General Evaluation Toileting Ability Independent Devices Toileting Assistive Devices Grab Bars OT ADL-Bathing Comments OT Bathing Comments Not performed M5 OT- IP IADL's Start: 07/20/18 17:57 Freq: Status: Active Protocol: Document 07/21/18 15:47 CGR (Rec: 07/21/18 16:08 CGR [email or web address]) OT-Instrumental Activities of Daily Living Home Safety Awareness Awareness of Need for Assistance at Home Good Awareness Ability to Problem Solve Emergency Able to Problem Solve Situations Medication Management Medication Management No Deficits Identified Meal Preparation Meal Preparation No Deficits Identified Social Media Content Manager Social Media Content Manager Caregiver Provides Assist Driving Driving Comments 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 M6 OT- IP Functional Cognition Start: 07/20/18 17:57 Freq: Status: Active Protocol: Document 07/21/18 15:47 CGR (Rec: 07/21/18 16:08 CGR [email or web address]) Cognitive Factors Limiting Selfcare Function Cognitive Ability Level of Alertness Alert Patient Orientation Name Age Birthday Month Date Year Day of Week Place Situation Attention Span Ability Capable of Focused Attention Ability to Follow Commands Able to Follow Multi-Step Commands Memory Description No Deficits Noted Safety Awareness No Deficits Noted Problem Solving Ability No deficits Noted Executive Function Ability No Deficits Noted Abstract Thinking Ability No Deficits Noted OT- Vision and Hearing OT- Hearing Assessment OT- Hearing Assessment WFL OT- Vision Assessment Visual Acuity Glasses For Reading Visual Attentiveness WFL Occular Pursuits WFL Visual Convergence WFL Visual [place] WFL Diplopia Absent Visual Spacial Neglect Not Applicable Vision Assessment Comments Per family, pt will be seeing an eye doctor once home and ok for traveling. M7 OT- IP Mobility and Balance Start: 07/20/18 17:57 Freq: Status: Active Protocol: Document 07/21/18 15:47 CGR (Rec: 07/21/18 16:08 CGR [email or web address]) OT- Bed Mobility Assessment Rolling Type of Rolling Log Rolling Roll to Left Level of Assistance Independent Supine to Sit Supine to Sit Assist Independent Sit to Supine Sit to Supine Assist Independent Scooting Scooting to Edge of Bed Independent OT-Transfer Assessment Sit to and From Stand Sit to and from Stand Standby Assistance Transfers Transfer Ability Standby Assistance Technique Transfer Destination Bed Chair Toilet Devices Transfer Assistive Devices Front Wheeled Walker Orthotic/Prosthetic Devices or Brace: No Comments Mobility Comments Pt grossly SBA to IND with mobility with use of walker. Min VC for proper use of walker. OT- Balance Assessment Sitting Balance and Reactions Static Sitting Balance Ability Normal Dynamic Sitting Balance Ability Normal Standing Balance and Reactions Static Standing Balance Ability Normal Dynamic Standing Balance Ability Normal M8 OT- IP Objective Assessments Start: 07/20/18 17:57 Freq: Status: Active Protocol: Document 07/21/18 15:47 CGR (Rec: 07/21/18 16:08 CGR [email or web address]) OT Gross Range of Motion Upper Extremity Range of Motion Assessment Within Functional Limits OT Strength Upper Extremity Strength Assessment Within Functional Limits Comments Strength Comments 4/5 throughout OT- Coordination Assessment Upper Extremity Finger to Nose Test Within Functional Limits Finger Tapping Test Within Functional Limits OT Sensation Assessment Comments Summary Comments WFL to UE and neck. Edema Edema Absent M9 OT- IP Assessment and Plan Start: 07/20/18 17:57 Freq: Status: Active Protocol: Document 07/21/18 15:47 CGR (Rec: 07/21/18 16:08 CGR [email or web address]) OT Summary Assessment and Plan Potential Rehabilitation Potential Excellent Analytic Complexity at Evaluation Low Summary Progress Towards Goals Goals Met Assessment Summary Pt is performing all ADLs without assist while maintaining her back precautions with min verbal cues. Family will be present to remind pt of precautions upon discharge. Frequency of Treatment Frequency Of Treatment Discharge Discharge Recommendations OT Discharge Recommendations Home with Assistance Home Equipment Needs Recommend shower chair for pt. Pt states that she has an outdoor plastic chair that can be used.
--- NOTE | 2018-07-21 16:10 | PT.IPTN ---
Current Diagnoses Spondylolisthesis, lumbar region (07/19/18) Other spondylosis with radiculopathy, lumbar region (07/19/18) Spinal stenosis, lumbar region without neurogenic claudication (07/19/18) Arthrodesis status (07/19/18) Surgery Performed Operation Date: 07/19/18 07:45 Actual Procedures p L3-4,L5-S1 TLIF, L4-5 HWR & Explor. of fusion, Poss PSF L3-4,L4-5,L5-S1 Instru.(Not Applicable) - Noemi Douglas MD Physical Therapy Treatment Note M2 PT-IP Current Condition Start: 07/19/18 16:53 Freq: NEEDED Status: Active Protocol: Document 07/20/18 09:45 HH (Rec: 07/20/18 12:15 [email or web address]) Physical Therapy Current Condition Current Condition Evaluation Date 07/20/18 Treatment Diagnosis L3-L4, L5-S1 TLIF, impaired gait, balance and activity tolerance. Onset Date 07/19/18 Precautions Lumbar Precautions Log Roll No Twisting Limit Bending Lifting Restriction of 10 lbs Gait Belt above Incisional Area Weight Bearing Status Weight Bearing Status Weight Bear as Tolerated M3 PT-IP Subjective Start: 07/19/18 16:53 Freq: NEEDED Status: Active Protocol: Document 07/21/18 14:00 HH (Rec: 07/21/18 16:09 [email or web address]) Subjective Physical Therapy Visit Type Type Treatment Note Visit Start Time 14:00 Visit Stop Time 14:20 Total Visit Minutes 20 Notes Pt was in bed and daughter at bedside. Co-tx with OT Physical Therapy Visit Comments Patient Comments Im feeling much better today. Therapy Pain Assessment Pain When Pain Assessed During Mobility Pain Present Pain Present Pain Reported Location Back Intensity 3 Scale Used Numeric (1 - 10) Description Acute Pain Behaviors Facial Grimacing Pain Management Techniques Modification of Treatment Re-positioning Timing of Activity with Medications M4 PT-IP Mobility and Gait Start: 07/19/18 16:53 Freq: NEEDED Status: Active Protocol: Document 07/21/18 14:00 HH (Rec: 07/21/18 16:09 [email or web address]) PT-Bed Mobility Assessment Rolling Type of Rolling Log Rolling Roll to Left Level of Assist Minimal Assistance 1 Person Assistance Supine to Sit Supine to Sit Minimal Assistance 1 Person Assistance Sit to Supine Sit to Supine Minimal Assistance 1 Person Assistance Scooting Scooting to Edge of Bed Standby Assistance Scooting Up and Down in Bed Standby Assistance PT-Transfer Assessment Sit to and From Stand Sit to and from Stand Contact Guard Assistance Minimal Assistance Equipment Transfer Assistive Device Gait Belt Front Wheeled Walker Orthotic/Prosthetic Devices or Brace: No Transfers Transfer Destination Bed Transfer Technique Stand Step Pivot Transfer Ability Level of Assist Contact Guard Assistance Minimal Assistance Comments Mobility Comments Pt was able to recall all 3/3 precautions but was impulsive for bed mobility. Needed cues to slow her down and use of log roll Gait Assessment Gait Gait Assistance Required: Contact Guard Assist Minimum Assistance 1 Person Assist Distance (Feet) 200 Able to Maintain Weight Bearing Status Yes During Gait Assistive Devices Assistive Device Gait Belt Front Wheeled Walker Orthotic/Prosthetic Devices or Brace: No Gait Deviations General Gait Pattern Decreased Stride Length Decreased Feet Clearance Step-to Gait Factors Limiting Gait Function Factors Limiting Gait Function Decreased Activity Tolerance Decreased Sensation Decreased Strength Limited Range of Motion Pain Poor Balance Poor Safety Awareness Comments Gait Comments amb with FWW CGA for a total of 200 ft. Pt still present slight wobbly gait but maintain upright position. Stair Climbing Assessment Evaluation Level of Assist On Stairs Contact Guard Assistance Devices Stair Climbing Assistive Devices Front Wheel Walker Left Railing Right Railing Technique/Endurance Stair Climbing Direction Ascend and Descend Stair Climbing Technique Step to Step Number of Steps Climbed 3 Query Text: Stair Climbing Set # Repetitions (reps) 1 Comments Stair Climbing Comments CGA M5 PT-IP Objective Assessments Start: 07/19/18 16:53 Freq: NEEDED Status: Active Protocol: Document 07/20/18 09:45 (Rec: 07/20/18 12:15 [email or web address]) Orientation Orientation/Cognition Level of Alertness Alert Orientation Name Age Birthday Month Date Year Day of Week Place Situation Language Function Ability No Deficits Noted Safety Awareness Decreased Safety Awareness Memory Description No Deficits Noted Comments Pt is very impulsive and non patient Gross Range of Motion Upper Extremity ROM Assessment Within Functional Limits Lower Extremity ROM Assessment Within Functional Limits Strength Upper Extremity Strength Assessment Within Functional Limits Lower Extremity Strength Assessment Bilaterally Impaired Comments Strength Comments L LE 3+/5 R LE 4+/5 pt reports she has weakness prior to surgery. Coordination Assessment Gross Coordination Gross Coordination WNL Sensation Assessment Sensation Gross Sensation WNL Light Touch Intact Proprioception (Position) Intact Muscle Tone Muscle Tone WNL Yes M6 PT-IP Treatment Start: 07/19/18 16:53 Freq: NEEDED Status: Active Protocol: Document 07/21/18 08:51 LJ (Rec: 07/21/18 09:06 LJ [email or web address]) Physical Therapy Treatment Exercises Exercises Gluteal Sets Quad Sets Education Education Provided Precautions Weight Bearing Status Post-Op Packet Safety M7 PT-IP Assessment and Plan Start: 07/19/18 16:53 Freq: NEEDED Status: Active Protocol: Document 07/21/18 14:00 HH (Rec: 07/21/18 16:09 HH [email or web address]) PT Summary Assessment and Plan Potential Rehabilitation Potential Good Status of Condition at Evaluation Evolving Summary Assessment Summary Cont to need cues for bed mobility , log roll and slow her down. Pt tends to be impulsive and forget her precautions during mobility. Pt's dtr attended session today and stated she will be able to help if pt's spouse Abran is not at home. Per SW, pt and Abran both refused to be d/c to SNF. Goals Bed Mobility Goal Standby Assistance Transfer Goal Standby Assistance Front Wheeled Walker Gait Goal Standby Assistance Front Wheel Walker Gait Distance 200 Other Goals clear 1 step with AD Days to Meet Goals 5 Frequency of Treatment Frequency Of Treatment Twice a Day Treatment Plan Physical Therapy Treatment Plan Bed Mobility Training Transfer Training Gait Training Therapeutic Exercise Balance Retraining Post Op Education Discharge Planning Hot or Cold Pack Other Recommendations and Next Treatment review precautions Focus cont monitor pt safety bed mob, transfer and gait training as nakul clear 1 step if possible Recommendations To Nursing Amount of Assist Needed 1 Person Assist Discharge Recommendations PT Discharge Recommendations Home with Assistance SNF Rehab Other Discharge Recommendations Continued recommendation for SNF d/c due to pt's impulsiveness.
[2018-07-21] MEDS: DEXAMETHASONE 4 MG TABLET PO (18:21)
[2018-07-21] MEDS: CITALOPRAM 20 MG TABLET PO (19:50)
[2018-07-21] MEDS: TRAZODONE 50 MG TABLET 100 MG PO (21:46)
[2018-07-22 01:31] VITALS: BP 147/83; PULSE 71; RESP 16; TEMP 36.6; O2SAT 98
[2018-07-22] MEDS: DEXAMETHASONE 4 MG TABLET PO ×2 (01:34→08:28)
[2018-07-22] MEDS: OXYCODONE IR 5 MG TABLET 15 MG PO ×3 (01:38→11:45)
[2018-07-22 07:55] VITALS: BP 141/86; PULSE 75; RESP 20; TEMP 36.6
[2018-07-22] MEDS: TIOTROPIUM BROMIDE 18 MCG INHALER INH (08:26)
[2018-07-22] MEDS: MULTIVITAMIN 1 TABLET 1 TAB PO (08:27)
[2018-07-22] MEDS: ATENOLOL 50 MG TABLET PO (08:27)
[2018-07-22] MEDS: METHOCARBAMOL 500 MG TABLET PO (08:28)
[2018-07-22] MEDS: NICOTINE 14 PATCH 14 MG TOP (08:28)
--- NOTE | 2018-07-22 09:28 | P.DS_ITS ---
History of Present Illness Date Patient Seen: 07/22/18 Time Patient Seen: 09:24 Chief complaint: [id number] LUMBAR Narrative: Pain is 6/10. No fever chills. No nausea vomiting. Patient's is home to assist her. Patient wishes to go home today. Discharge Providers Date of admission: 07/19/18 06:18 Discharge Date: 07/22/18 Primary care physician: Flako Serrano MD Consults: 07/19/18 14:46 Consult to Occupational Therapy Evaluate & Treat Comment: Physician Instructions: Evaluate and treat Consult to Physical Therapy Evaluate & Treat Comment: Physician Instructions: Evaluate and Treat 07/19/18 14:51 Consult to Respiratory Therapy Evaluate & Treat Comment: +COPD, +smoker, +ETOH Physician Instructions: Evaluate and treat Discharge provider: Ramez Colby PA-C Summary Discharge Diagnosis: Status post: 1. L3-4, L5-S1 posterolateral and posterior interbody fusion 2. L3-4, L5-S1 interbody cage placement 3. L4-5 posterior non-segmental instrumentation removal 4. L4-5 decompressive laminectomy and exploration of fusion 5. L3-4, L4-5, L5-S1 segmental instrumentation with pedicle screw placement in L3, L4, L5, S1 6. L4-5 posterolateral fusion 7. [place] of bone marrow from iliac crest 8. Utilization of microsurgical technique and operating microscope Hospital Course: Patient has been having chronic back pain and worsening lumbar radiculopathy. Patient had prior lumbar fusion at L4-5 with progressively worsening pain difficulty walking and weakness in her legs. Patient failed multiple conservative management with worsening pain weakness and numbness in her lower extremity. Patient has been having difficulty performing activity of daily living. After discussing risks benefits of treatment options, patient elected proceed with surgery. Surgeon: Noemi Douglas Project Development Manager: Bonny Roth Click Yes if Unassisted: No Anesthesia Type: General Operative Notes Closure Type: primary Prosthetic devices, grafts, tissues, transplants, or devices: Globus revolve screws, Rise cages Applied: catheter Estimated Blood Loss (mL): 100 Blood products transfused: none Patient taken to the operating room for the above-mentioned procedures. Patient back in her room recovering well and is in stable condition. patient's recovery has been slowed secondary to chronic pain which she typically manages with medical marijuana and oxycodone. Patient is pain control has improved and is ready for discharge home today. patient discharged home in stable condition. Status at Discharge Cognitive/behavioral status at discharge: at baseline, oriented Functional status at discharge: uses cane/walker Overall status at discharge: patient is progressing back to baseline Time Spent with Patient Less than 30 minutes Exam Vital Signs (past 8 hours): - 07/22/18 01:31 07/22/18 07:55 Temperature 97.8 F 97.9 F Pulse Rate 71 75 Respiratory Rate 16 20 Blood Pressure 147/83 H 141/86 H Pulse Oximetry 98 Fraction of Inspired Oxygen 21 Oxygen Delivery Method Room Air Oxygen Flow Rate 0 Narrative Exam Narrative: 58-year-old female resting comfortably in bed in no apparent distress. motor functions intact bilateral lower extremities. Sensation is grossly intact to light touch bilateral lower extremities. Both legs are warm and dry. lumbar dressing is clean, dry and intact. Objective Labs Result Diagrams: 07/20/18 08:30 Discharge Plan Discharge Plan Patient Disposition: Home Discharge comment: DC home today Discharge Med Rec/Prescriptions Prescriptions: New methocarbamol 500 mg Tablet 500 mg PO TID PRN (Reason: Muscle Spasm) Qty: 30 RF: 1 oxycodone 5 mg Tablet 15 mg PO Q3HR PRN (Reason: Pain, Severe (7-10)) Qty: 90 RF: 0 Continued citalopram 20 MG tablet 20 mg PO HS Qty: 0 RF: 0 trazodone 50 MG tablet 100 mg PO HS Qty: 0 RF: 0 atenolol 50 MG tablet 50 mg PO DAILY Qty: 0 RF: 0 potassium gluconate 99 MG tablet 99 mg PO HS Qty: 0 RF: 0 Excedrin Extra Strength 1 EACH tablet 1 tab PO PRN PRN (Reason: headaches) Qty: 0 RF: 0 acetaminophen [Tylenol Extra Strength] 500 MG tablet 1 tab PO TID PRN (Reason: headaches) Qty: 0 RF: 0 multivitamin Capsule 1 tab PO DAILY RF: 0 Spiriva with HandiHaler 18 mcg Capsule, W/Inhalation Device 1 cap INHALATION DAILY RF: 0 albuterol sulfate [Ventolin HFA] 90 mcg/actuation Hfa Aerosol Inhaler 1 - 2 puff INHALATION Q4-6H PRN (Reason: Asthma, COPD) RF: 0 Discontinued oxycodone 10 MG tablet 10 mg PO Q6H PRN (Reason: pain) Qty: 0 RF: 0 Follow up/Referrals: Flako Serrano MD [Primary Care Provider] - Provider Discharge Instructions Diet: Diet as Tolerated Activity: limit bending, twisting, lifting Cold/Heat Therapy: ice as needed Skin/Wound/Dressing Care Report to your healthcare provider any signs of infection, such as:: chills, fever, increased pain, unusual drainage and unusual redness Dressing: keep clean and dry Discharge Data Primary Care Provider: Flako Serrano Attending Provider: Noemi Douglas Admit Date/Time: 07/19/18 06:18 Quality VTE Deep Vein Thrombosis/Pulmonary Embolism Present on Admission: No
--- NOTE | 2018-07-22 11:20 | PT.IPTN ---
Current Diagnoses Spondylolisthesis, lumbar region (07/19/18) Other spondylosis with radiculopathy, lumbar region (07/19/18) Spinal stenosis, lumbar region without neurogenic claudication (07/19/18) Arthrodesis status (07/19/18) Surgery Performed Operation Date: 07/19/18 07:45 Actual Procedures p L3-4,L5-S1 TLIF, L4-5 HWR & Explor. of fusion, Poss PSF L3-4,L4-5,L5-S1 Instru.(Not Applicable) - Noemi Douglas MD Physical Therapy Treatment Note M2 PT-IP Current Condition Start: 07/19/18 16:53 Freq: NEEDED Status: Active Protocol: Document 07/20/18 09:45 (Rec: 07/20/18 12:15 [id number]) Physical Therapy Current Condition Current Condition Evaluation Date 07/20/18 Treatment Diagnosis L3-L4, L5-S1 TLIF, impaired gait, balance and activity tolerance. Onset Date 07/19/18 Precautions Lumbar Precautions Log Roll No Twisting Limit Bending Lifting Restriction of 10 lbs Gait Belt above Incisional Area Weight Bearing Status Weight Bearing Status Weight Bear as Tolerated M3 PT-IP Subjective Start: 07/19/18 16:53 Freq: NEEDED Status: Active Protocol: Document 07/22/18 11:12 SA (Rec: 07/22/18 11:20 [email or web address]) Subjective Physical Therapy Visit Type Type Treatment Note Visit Start Time 10:34 Visit Stop Time 10:52 Total Visit Minutes 18 Notes Pt in bed, present. Physical Therapy Visit Comments Patient Comments Pt reports feeling better, agreeable to PT. Therapy Pain Assessment Pain When Pain Assessed During Mobility Pain Present Pain Present Pain Reported Location Back Intensity 4 Scale Used Numeric (1 - 10) Description Acute Pain Behaviors Facial Grimacing Pain Management Techniques Modification of Treatment Re-positioning Timing of Activity with Medications M4 PT-IP Mobility and Gait Start: 07/19/18 16:53 Freq: NEEDED Status: Active Protocol: Document 07/22/18 11:12 SA (Rec: 07/22/18 11:20 SA [id number]) PT-Bed Mobility Assessment Rolling Type of Rolling Log Rolling Roll to Right Level of Assist Contact Guard Assistance Supine to Sit Supine to Sit Contact Guard Assistance Sit to Supine Sit to Supine Contact Guard Assistance Scooting Scooting to Edge of Bed Standby Assistance Scooting Up and Down in Bed Standby Assistance PT-Transfer Assessment Sit to and From Stand Sit to and from Stand Contact Guard Assistance Equipment Transfer Assistive Device Gait Belt Front Wheeled Walker Orthotic/Prosthetic Devices or Brace: No Transfers Transfer Destination Bed Toilet Transfer Technique Stand Step Pivot Transfer Ability Level of Assist Contact Guard Assistance Comments Mobility Comments Pt recalls precautions but needs cues to slow down and adhere to said precautions during mobility tasks. Able to completed log roll technique safely with CGA but needs cues . Gait Assessment Gait Gait Assistance Required: Contact Guard Assist 1 Person Assist Distance (Feet) 220 Able to Maintain Weight Bearing Status Yes During Gait Assistive Devices Assistive Device Gait Belt Front Wheeled Walker Orthotic/Prosthetic Devices or Brace: No Gait Deviations General Gait Pattern Decreased Stride Length Decreased Feet Clearance Step-to Gait Factors Limiting Gait Function Factors Limiting Gait Function Decreased Activity Tolerance Decreased Sensation Decreased Strength Limited Range of Motion Pain Poor Balance Poor Safety Awareness Comments Gait Comments GAit training in [place] with FWW /CGA and mod cues for safety and pacing. Stair Climbing Assessment Evaluation Level of Assist On Stairs Contact Guard Assistance Devices Stair Climbing Assistive Devices Left Railing Right Railing Technique/Endurance Stair Climbing Direction Ascend and Descend Stair Climbing Technique Step to Step Number of Steps Climbed 3 Query Text: Stair Climbing Set # Repetitions (reps) 1 Comments Stair Climbing Comments Cues for safety. M5 PT-IP Objective Assessments Start: 07/19/18 16:53 Freq: NEEDED Status: Active Protocol: Document 07/20/18 09:45 HH (Rec: 07/20/18 12:15 [email or web address]) Orientation Orientation/Cognition Level of Alertness Alert Orientation Name Age Birthday Month Date Year Day of Week Place Situation Language Function Ability No Deficits Noted Safety Awareness Decreased Safety Awareness Memory Description No Deficits Noted Comments Pt is very impulsive and non patient Gross Range of Motion Upper Extremity ROM Assessment Within Functional Limits Lower Extremity ROM Assessment Within Functional Limits Strength Upper Extremity Strength Assessment Within Functional Limits Lower Extremity Strength Assessment Bilaterally Impaired Comments Strength Comments L LE 3+/5 R LE 4+/5 pt reports she has weakness prior to surgery. Coordination Assessment Gross Coordination Gross Coordination WNL Sensation Assessment Sensation Gross Sensation WNL Light Touch Intact Proprioception (Position) Intact Muscle Tone Muscle Tone WNL Yes M6 PT-IP Treatment Start: 07/19/18 16:53 Freq: NEEDED Status: Active Protocol: Document 07/22/18 11:12 (Rec: 07/22/18 11:20 [id number]) Physical Therapy Treatment Exercises Exercises Gluteal Sets Quad Sets Education Education Provided Precautions Weight Bearing Status Post-Op Packet Safety M7 PT-IP Assessment and Plan Start: 07/19/18 16:53 Freq: NEEDED Status: Active Protocol: Document 07/22/18 11:12 (Rec: 07/22/18 11:20 [id number]) PT Summary Assessment and Plan Potential Rehabilitation Potential Good Status of Condition at Evaluation Evolving Summary Assessment Summary Pt is safe to go home as long as she has constant supervision, she is impulsive and tends to break precautions when not reminded. Family has been educated on spinal precautions and safe mobilizing. Frequency of Treatment Frequency Of Treatment Twice a Day Recommendations To Nursing Amount of Assist Needed 1 Person Assist Discharge Recommendations PT Discharge Recommendations Home with 24/7 Assist Other Discharge Recommendations Pt to d/c home today, recommend 24/7 supervision d /c pt impulsiveness and questionable judgment.
[2018-07-22] MEDS: ACETAMINOPHEN 325 MG TABLET 650 MG PO (11:46)
--- NOTE | 2018-07-22 12:44 | PC.NURSE ---
Discharge Pt taking 15 mg oxy for pain control. states pain is a little better with meds. left with all belongings. d/c instructions provided to pt and her . PIV was already out. aware to contact MD with any additional questions or concerns. Left in w/c with RN escort to car with spouse. Pt took Rx with her.
== END 2018-07-22 12:35 | disposition home or self-care (01) | DRG 454 ==
PROVIDERS: Physician Assistant; Admitting Provider Orthopaedic Surgery Orthopaedic Surgery of the Spine; PCP Family Medicine; Visit Provider Orthopaedic Surgery Orthopaedic Surgery of the Spine
PROC: 0SG00AJ Fusion of Lumbar Vertebral Joint with Interbody Fusion Device, Posterior Approach, Anterior Column, Open Approach (ICD-10-PCS; principal; 2018-07-19 07:45)
DX: M47.26 Other spondylosis with radiculopathy, lumbar region (principal); M96.0 Pseudarthrosis after fusion or arthrodesis; M43.16 Spondylolisthesis, lumbar region; M48.061 Spinal stenosis, lumbar region without neurogenic claudication; J44.9 Chronic obstructive pulmonary disease, unspecified; I10 Essential (primary) hypertension; M96.1 Postlaminectomy syndrome, not elsewhere classified; R50.9 Fever, unspecified; M54.9 Dorsalgia, unspecified
CPT/HCPCS: 36415; 72100; 76000; 81001; 85014; 85018; 85025; 94640; 94760; 97116; 97162; 97165; 97530; 97535; C1776; C9290; J0131; J0330; J0690; J1170; J2060; J2250; J2405; J2704; J3010